=== PATIENT | male | born 1960 | race Caucasian/White ===

== ENCOUNTER 2024-07-21 09:14 | Outpatient (AMB) | payer MEDICAID, SELFPAY ==
--- NOTE | 2024-07-21 09:28 | HO.SPINEOV ---
Vital Signs 07/21/24 09:34 Height 5 ft 9 in Weight 215 lb BMI 31.7 Intake Visit Reasons: recurrent bilateral sacroiliac joint dysfunction Intake Note: Mr. Turner is here today c/o low back pain difficulty walking. Analytic Programmer Required: No Allergies doxycycline Allergy (Severe, Verified 07/21/24 09:36) Rash Sulfa (Sulfonamide Antibiotics) Allergy (Severe, Verified 07/21/24 09:36) Rash Physical Exam Vital Signs: BMI result Body Mass Index 31.7 Assessment & Plan Assessment & Plan (1) Chronic SI joint pain: Code(s): M53.3 - Sacrococcygeal disorders, not elsewhere classified; G89.29 - Other chronic pain Category: Medical Plan Dear Dr Cedillo, Thank you for referring Mr Turner to our office today. He is a very nice 64-year-old gentleman previous history of lumbar microdiskectomy surgery in the , who has had chronic issues with pain in his bilateral SI joints now for many years. He has a known history of degenerative disc disease as well. He has been treated through your pain Center with multiple rounds of injections in the SI joint and generally reports that he gets significant if not complete relief of the pain with the injections. The effect will last for few weeks and then it slowly starts to go away. As I understand it there was attempt to do a neurotomy or rhizotomy, but his insurance would not approve it so he was sent today for an evaluation a consideration of surgery SI joint fusion. The patient has the pain all across his SI joints in the lower beltline all throughout the day but it is aggravated with standing, bending, carrying things or sitting for any length of time. There is no radicular pain down the legs. He takes acetaminophen, methocarbamol to help with the discomfort. He can not take anti-inflammatories because of history of peptic ulcer disease. He has been through physical therapy, patient care provider as well as acupuncture forward with no significant relief PMH: Significant for coronary disease, he had a stent in his heart in September but from what he tells me it did not help the shortness of breath that he was having. He remains on aspirin and Plavix. He has a history of congestive heart failure., hypertension, high cholesterol, anxiety, previous alcohol abuse, bilateral knee replacements, bilateral shoulder repair, recently had a repair of an ankle injury from a fall just a few months back, back surgery 89, elbow surgery, bilateral hand surgery Social hx: He still smokes about 8 cigarettes a day, he has been sober for about 5 years no recreational drugs Medications: Jardiance, duloxetine, hydroxyzine, mirtazapine, Prilosec, alprazolam, Myrbetriq, methocarbamol, Klonopin, atorvastatin, Plavix, aspirin, BuSpar, gabapentin, metoprolol, Varian Cyclen Allergies: Sulfa and doxycycline Physical exam: Very slow to stand up, reports tremendous amount of pain with palpation over the SI joints, positive finger Denisse, positive bilateral COLIN testing and Gaenslen testing. Imaging review: There is a lumbar MRI at [facility] showing multilevel degenerative disc disease in lumbar spine which is severe and advanced. No significant central canal stenosis Impression: 64-year-old gentleman presents for evaluation of bilateral SI joint pain, has undergone numerous rounds of conservative treatment as outlined above with excellent response to repeated trials of SI joint injections. Unfortunately his insurance would not allow him to undergo rhizotomy so he is here today for surgical discussion of SI joint fusion. Dr. Kolb and I met with him, feel he is a good candidate for SI joint fusion. The patient prefers to start on the right side. We will book him for a right SI joint fusion in August. He understands he will need to be off his right leg nonweightbearing for 3 weeks. I gave him a prescription for a walker because he will very likely not be able to use crutches because of his shoulder problems. He does have a Rollator that he used when he had to be off his ankle. Although it has knee support to roll around, Dr. Kolb said this would be certainly reasonable to use as well. If he does well on the right side, we will do the left side. He will have to stop his aspirin and Plavix 10 days prior to surgery and will need a clearance note from his conduit worker at [facility]. He recently had an ankle surgery so he does not think it should be an issue. Pt was given risk and benefits of surgery including but not limited to infection, hematoma , nerve injury,durotomy, weakness,bowel/bladder injury, persistent pain, as well as the option to continue with conservative treatment and patient wishes to proceed with surgery. Pt is aware they should stop their motrin, aspirin 7 days prior to surgery. All questions were answered to the best of our ability. If there is anything about this patients medical history that we have overlooked or concerns you have about us proceeding with surgery we would appreciate any input you can offer. Thank you for allowing us to care for your patient. The total time spent with this visit with this patient was 45 minutes reviewing history, physical exam, lumbar imaging review, and implementation of treatment plan or further diagnostic testing Steve Kolb MD,PhD [facility] Medications: New [rolling walker] non weight bearing right leg after surgery 1 ea 0RF si joint surgery Coding Level of Care Code New Pt Level 4 (64110) Diagnoses Chronic SI joint pain M53.3; G89.29
[2024-07-21 09:34] VITALS: BMI 31.7
--- OUTSIDE RECORDS SUMMARY | 2024-07-21 09:44 | XMS_ITS | Clinical Summary ---
Author Organization [facility] Address [address] [place] [address] Phone Care Team Providers Care Chief Guard Name Role Phone Elmer Little DO Primary Care Provider [phone] Encounters Date Type Department Care Team Description 07/18/2024 Lab Requisition [facility] - Main Lab [address] [facility] [place] [phone] Radha Landeros Hematuria, unspecified; Urinary tract infection, site not specified 04/28/2024 7:59 AM EST - 04/28/2024 11:59 PM EST Hospital Encounter [facility] Ultrasound [address] [place] [phone] Pain in left ankle and joints of left foot; Claudication (CMS/HCC) Discharge Disposition: Home or Self Care 04/28/2024 7:59 AM EST - 04/28/2024 11:59 PM EST Hospital Encounter [facility] Ultrasound [address] [place] [phone] Claudication (CMS/HCC); Pain in left ankle and joints of left foot Discharge Disposition: Home or Self Care from Last 3 Months Social History Tobacco Use Types Packs/Day Years Used Date Smoking Tobacco: Never Assessed Sex and Gender Information Value Date Recorded Sex Assigned at Male 04/22/2024 11:54 AM EDT Gender Identity Male 04/22/2024 11:54 AM EDT Sexual Orientation Not on file Job Start Date Occupation Industry Not on file Not on file Not on file Obstetrics History Plan of Treatment Health Maintenance Due Date Last Done Comments Zoster Vaccines (1 of 2) 2011 Cholesterol Screening (Lipid Panel) 05/24/2022 Colorectal Cancer Screening: Colonoscopy 05/24/2022 Depression Screening 05/24/2022 HIV Screening 05/24/2022 Hepatitis C Screening 05/24/2022 Social Influencers of Health Screening 05/24/2022 COVID-19 Vaccine (3 - 2023-2 5 season) 2024 07/17/2020, 06/26/2020 Influenza Vaccine (#1) 2024 Hypertension/CHF/CAD Annual BMP Blood Test 04/28/2024 DTaP,Tdap,and Td Vaccines (2 - Td or Tdap) 07/11/2024 07/11/2014 RSV Immunization Patients 60 + Years Old (1 - 1-dose 75+ series) 2036 HIB Vaccines Aged Out No longer eligi ble based on patient's age to complete this topic HPV Vaccines Aged Out No longer eligi ble based on patient's age to complete this topic Hepatitis A Vaccines Aged Out No long er eligible based on patient's age to complete this topic Hepatitis B Vaccines Aged Out No long er eligible based on patient's age to complete this topic IPV Vaccines Aged Out No longer eligi ble based on patient's age to complete this topic MMR Vaccines Aged Out No longer eligi ble based on patient's age to complete this topic Meningococcal ACWY Vaccine Aged Out N o longer eligible based on patient's age to complete this topic Pneumococcal Vaccine: Pediatrics (0 to 5 Years) and At-Risk Patients (6 to 64 Years) Aged Out No longer eligible b ased on patient's age to complete this topic RSV Immunization Patients Under 20 months Aged Out No longer eligible b ased on patient's age to complete this topic Varicella Vaccines Aged Out No longer eligible based on patient's age to complete this topic Procedures Procedure Name Priority Date/Time Associated Diagnosis Comments URINALYSIS WITH REFLEX MICROSCOPIC Routine 07/18/2024 11:30 AM EST Hematuria, unspecified Urinary tract infection, site not specified URINALYSIS WITH REFLEX MICROSCOPIC Routine 07/18/2024 11:30 AM EST Hematuria, unspecified Urinary tract infection, site not specified CULTURE URINE Routine 07/18/2024 11:30 AM EST Hematuria, unspecified Urinary tract infection, site not specified VAS US ANKLE BRACHIAL INDEX Routine 04/28/2024 9:20 AM EST Claudication (CMS/HCC) Pain in left ankle and joints of left foot US EXTREMITY NONVASCULAR LIMITED LEFT Routine 04/28/2024 9:20 AM EST Pain in left ankle and joints of left foot Claudication (CMS/HCC) CT LOWER EXTREMITY WO CONTRAST LEFT Routine 04/20/2024 2:52 PM EDT from Last 3 Months Results * (ABNORMAL) Urinalysis with reflex microscopic (07/18/2024 11:30 AM EST) Specific [place] Urine 1.022 1.003 - 1.030 LAB URINALYSIS - AUTOMATED METHOD 07/18/2024 3:13 PM [facility] pH, Urine 6.0 5.0 - 8.0 pH LAB URINALYSIS - AUTOMATED METHOD 07/18/2024 3:13 PM [facility] Leukocytes, Urine Small(A) Negative LAB URINALYSIS - AUTOMATED METHOD 07/18/2024 3:13 PM [facility] Nitrite, Urine Negative Negative LAB URINALYSIS - AUTOMATED METHOD 07/18/2024 3:13 PM [facility] Protein, Urine Negative <=Trace mg/dL LAB URINALYSIS - AUTOMATED METHOD 07/18/2024 3:13 PM [facility] Glucose, Urine >=1000(A) Negative mg/dL LAB URINALYSIS - AUTOMATED METHOD 07/18/2024 3:13 PM [facility] Ketones, Urine Negative Negative mg/dL LAB URINALYSIS - AUTOMATED METHOD 07/18/2024 3:13 PM [facility] Urobilinogen , Urine 0.2 0.2 - 1.0 mg/dL LAB URINALYSIS - AUTOMATED METHOD 07/18/2024 3:13 PM [facility] Bilirubin, Urine Negative Negative LAB URINALYSIS - AUTOMATED METHOD 07/18/2024 3:13 PM [facility] Blood, Urine Negative Negative LAB URINALYSIS - AUTOMATED METHOD 07/18/2024 3:13 PM [facility] RBC, Urine 3.7 0 - 4 /HPF LAB URINALYSIS - AUTOMATED METHOD 07/18/2024 3:13 PM [facility] WBC, Urine 17.0(H) 0 - 4 /HPF LAB URINALYSIS - AUTOMATED METHOD 07/18/2024 3:13 PM [facility] Squamous Epithelial, Urine 44 0 - 60 /LPF LAB URINALYSIS - AUTOMATED METHOD 07/18/2024 3:13 PM [facility] Bacteria, Urine Negative Negative /HPF LAB URINALYSIS - AUTOMATED METHOD 07/18/2024 3:13 PM [facility] Hyaline Casts, Urine 0.4 0 - 3 /LPF LAB URINALYSIS - AUTOMATED METHOD 07/18/2024 3:13 PM [facility] Urine Urine specimen obtained by clean catch procedure / Unknown 07/18/2024 11:30 AM EST 07/18/2024 3:03 PM EST [facility] LAB URINE ORDERABLES Performing Organization Address City/[facility]/ZIP Co de Phone Number [facility] [address] [place] [address], * Culture urine (07/18/2024 11:30 AM EST) Culture, Urine <10,000 CFU/mL gram positive cocci, insignificant count, no further workup 07/19/2024 7:47 AM EST [facility] Urine Urine specimen obtained by clean catch procedure / Unknown 07/18/2024 11:30 AM EST 07/18/2024 3:03 PM EST [facility] LAB MICROBIOLOGY - G ENERAL ORDERABLES [facility] [address] [place] [address], * Vascular US ankle brachial index (MARY) (04/28/2024 9:20 AM EST) Anatomical Region Laterality Modality Vascular, Abdomen Ultrasound 04/28/2024 9:35 AM EST Impressions 04/28/2024 9:39 AM EST 1. In the right lower extremity, pressures in the posterior tibial artery, dorsalis pedis, and brachial artery are normal. 2. In the left lower extremity, pressures in the posterior tibial artery and dorsalis pedis are normal; pressure in the first digital artery is at the lower limits of normal. Code [address]40.52 CT Teleradiology -------- FINAL REPORT -------- Dictated By: Ramon Roland Dictated Date: 04/28/2024 09:35 ET Assigned Physician: Ramon Roland Reviewed and Electronically Signed By: Ramon Roland Signed Date: 04/28/2024 09:39 ET Workstation ID: [id number] Transcribed By: Self Edit Transcribed Date: 04/28/2024 09:35 ET Narrative 04/28/2024 9:39 AM EST HISTORY:The patient is a 63-year-old male with lower extremity claudication. FINDINGS: Bilateral ankle arterial pressure measurements are obtained. In the right lower extremity, the systolic pressure ratio between the posterior tibial artery and the brachial artery is 1.07, that between the dorsalis pedis and the brachial artery is 1.07, and that between the first digital artery and the brachial artery is 0.99. These ratios are all within normal limits. In the left lower extremity, the systolic pressure ratio between the posterior tibial artery and the brachial artery is 1.10, ??that between the dorsalis pedis and the brachial artery is 1.15, and that between the first digital artery and the brachial artery is 0.90. ??These ratios are normal in the posterior tibial artery and dorsalis pedis, and is at the lower limits of normal in the first digital artery. Procedure Note Ramon Roland MD - 04/28/2024 HISTORY:The patient is a 63-year-old male with lower extremityclaudication. FINDINGS: Bilateral ankle arterial pressure measurements are obtained. Inthe right lower extremity, the systolic pressure ratio between theposterior tibial artery and the brachial artery is 1.07, that between thedorsalis pedis and the brachial artery is 1.07, and that between the firstdigital artery and the brachial artery is 0.99. These ratios are allwithin normal limits. In the left lower extremity, the systolic pressure ratio between theposterior tibial artery and the brachial artery is 1.10, that between thedorsalis pedis and the brachial artery is 1.15, and that between the firstdigital artery and the brachial artery is 0.90. These ratios are normalin the posterior tibial artery and dorsalis pedis, and is at the lowerlimits of normal in the first digital artery. IMPRESSION: 1. In the right lower extremity, pressures in the posterior tibial artery,dorsalis pedis, and brachial artery are normal. 2. In the left lower extremity, pressures in the posterior tibial arteryand dorsalis pedis are normal; pressure in the first digital artery is atthe lower limits of normal. Code [address]321.52 CT Teleradiology -------- FINAL REPORT -------- Dictated By: Ramon Roland Dictated Date: 04/28/2024 09:35 ET Assigned Physician: Ramon Roland Reviewed and Electronically Signed By: Ramon Roland Signed Date: 04/28/2024 09:39 ET Workstation ID: [id number] Transcribed By: Self Edit Transcribed Date: 04/28/2024 09:35 ET Elmer Mercadante DO CV VASCULAR PROCEDUR ES * US Extremity Nonvascular Limited Left (04/28/2024 9:20 AM EST) Anatomical Region Laterality Modality Extremity Left Ultrasound 05/26/2024 11:1 8 AM EST Impressions 05/26/2024 11:22 AM EST Normal ultrasound of the Achilles tendon. No evidence of tear. -------- FINAL REPORT -------- Dictated By: Diallo Monte Dictated Date: 05/26/2024 11:18 ET Assigned Physician: Diallo Monte Reviewed and Electronically Signed By: Diallo Monte Signed Date: 05/26/2024 11:22 ET Workstation ID: [id number] Transcribed By: Self Edit Transcribed Date: 05/26/2024 11:18 ET Narrative 05/26/2024 11:22 AM EST EXAMINATION: Ultrasound extremity nonvascular. CLINICAL INDICATION: Evaluate for Achilles tendon. Previous history of lateral calcaneal ORIF area COMPARISON: None. TECHNIQUE: Limited ultrasound imaging of the Achilles tendon was performed. FINDINGS: There is normal echotexture, thickness seen throughout the entire musculotendinous junction and the Achilles tendon tube insertion with no evidence of tear or surrounding effusion/fluid collection. Procedure Note Diallo Monte MD - 05/26/2024 EXAMINATION: Ultrasound extremity nonvascular. CLINICAL INDICATION: Evaluate for Achilles tendon. Previous history oflateral calcaneal ORIF area COMPARISON: None. TECHNIQUE: Limited ultrasound imaging of the Achilles tendon wasperformed. FINDINGS: There is normal echotexture, thickness seen throughout theentire musculotendinous junction and the Achilles tendon tube insertionwith no evidence of tear or surrounding effusion/fluid collection. IMPRESSION: Normal ultrasound of the Achilles tendon. No evidence of tear. -------- FINAL REPORT -------- Dictated By: Diallo Monte Dictated Date: 05/26/2024 11:18 ET Assigned Physician: Diallo Monte Reviewed and Electronically Signed By: Diallo Monte Signed Date: 05/26/2024 11:22 ET Workstation ID: [id number] Transcribed By: Self Edit Transcribed Date: 05/26/2024 11:18 ET Elmer SOTO US PROCEDURES * CT Lower Extremity wo Contrast Left (04/20/2024 2:52 PM EDT) Anatomical Region Laterality Modality Lower Extremities Left Computed Tomog sofya Historical Provider MD TAYL[facility] CT PROCEDURES from Last 3 Months Advance Directives Documents on File Type Date Recorded Patient Brand [employer] Promotional Sales Expl anation Health Care Decision (hx) 05/28/2020 AD MIRZA DIRECTIVE Health Care Decision (hx) 05/28/2020 AD MIRZA DIRECTIVE Health Care Decision (hx) 05/28/2020 AD MIRZA DIRECTIVE Health Care Decision (hx) 05/28/2020 AD MIRZA DIRECTIVE Health Care Decision (hx) 05/11/2018 AD MIRZA DIRECTIVE Health Care Decision (hx) 05/11/2018 AD MIRZA DIRECTIVE Health Care Decision (hx) 05/11/2018 AD MIRZA DIRECTIVE Health Care Decision (hx) 05/11/2018 AD MIRZA DIRECTIVE Health Care Decision (hx) 05/11/2018 AD MIRZA DIRECTIVE Care Teams Chief Guard Relationship Specialty Start Date End Date Elmer Little DO [address] [place] [phone] PCP - General Internal Medicine 05/10/17
--- OUTSIDE RECORDS SUMMARY | 2024-07-21 09:44 | XMS_ITS | Encounter Summary ---
Author Organization [facility] Address [address] [place] [address] Care Team Providers Care Oxidation Engineer Name Role Phone Elmer Little DO Primary Care Provider [phone] Encounter Details Date Type Department Care Team (Late st Contact Info) Description 07/18/2024 Lab Requisition [facility] - Main Lab [address] [facility] [place] [address] [facility] Radha [address] [place] [address] Hematuria, unspecified; Urinary tract infection, site not specified Social History Tobacco Use Types Packs/Day Years Used Date Smoking Tobacco: Never Assessed Sex and Gender Information Value Date Recorded Sex Assigned at Male 04/22/2024 11:54 AM EDT Gender Identity Male 04/22/2024 11:54 AM EDT Sexual Orientation Not on file Job Start Date Occupation Industry Not on file Not on file Not on file documented as of this encounter Plan of Treatment Not on file documented as of this encounter Procedures Procedure Name Priority Date/Time Associated Diagnosis Comments URINALYSIS WITH REFLEX MICROSCOPIC Routine 07/18/2024 11:30 AM EST Hematuria, unspecified Urinary tract infection, site not specified URINALYSIS WITH REFLEX MICROSCOPIC Routine 07/18/2024 11:30 AM EST Hematuria, unspecified Urinary tract infection, site not specified CULTURE URINE Routine 07/18/2024 11:30 AM EST Hematuria, unspecified Urinary tract infection, site not specified documented in this encounter Results * (ABNORMAL) Urinalysis with reflex microscopic (07/18/2024 11:30 AM EST) Specific [place] Urine 1.022 1.003 - 1.030 LAB URINALYSIS - AUTOMATED METHOD 07/18/2024 3:[address] [facility] pH, Urine 6.0 5.0 - 8.0 pH LAB URINALYSIS - AUTOMATED METHOD 07/18/2024 3:[address] [facility] Leukocytes, Urine Small(A) Negative LAB URINALYSIS - AUTOMATED METHOD 07/18/2024 3:[address] [facility] Nitrite, Urine Negative Negative LAB URINALYSIS - AUTOMATED METHOD 07/18/2024 3:[address] [facility] Protein, Urine Negative <=Trace mg/dL LAB URINALYSIS - AUTOMATED METHOD 07/18/2024 3:[address] [facility] Glucose, Urine >=1000(A) Negative mg/dL LAB URINALYSIS - AUTOMATED METHOD 07/18/2024 3:[address] [facility] Ketones, Urine Negative Negative mg/dL LAB URINALYSIS - AUTOMATED METHOD 07/18/2024 3:[address] [facility] Urobilinogen , Urine 0.2 0.2 - 1.0 mg/dL LAB URINALYSIS - AUTOMATED METHOD 07/18/2024 3:[address] [facility] Bilirubin, Urine Negative Negative LAB URINALYSIS - AUTOMATED METHOD 07/18/2024 3:[address] [facility] Blood, Urine Negative Negative LAB URINALYSIS - AUTOMATED METHOD 07/18/2024 3:[address] [facility] RBC, Urine 3.7 0 - 4 /HPF LAB URINALYSIS - AUTOMATED METHOD 07/18/2024 3:[address] [facility] WBC, Urine 17.0(H) 0 - 4 /HPF LAB URINALYSIS - AUTOMATED METHOD 07/18/2024 3:[address] [facility] Squamous Epithelial, Urine 44 0 - 60 /LPF LAB URINALYSIS - AUTOMATED METHOD 07/18/2024 3:13 PM EST [facility] Bacteria, Urine Negative Negative /HPF LAB URINALYSIS - AUTOMATED METHOD 07/18/2024 3:[address] [facility] Hyaline Casts, Urine 0.4 0 - 3 /LPF LAB URINALYSIS - AUTOMATED METHOD 07/18/2024 3:[address] [facility] Urine Urine specimen obtained by clean catch procedure / Unknown 07/18/2024 11:30 AM EST 07/18/2024 3:03 PM EST [facility] LAB URINE ORDERABLES Performing Organization Address City/[facility]/ZIP Co de Phone Number [facility] [address] [place] [address], [place] [phone] * Culture urine (07/18/2024 11:30 AM EST) Culture, Urine <10,000 CFU/mL gram positive cocci, insignificant count, no further workup 07/19/2024 7:47 AM EST [facility] Urine Urine specimen obtained by clean catch procedure / Unknown 07/18/2024 11:30 AM EST 07/18/2024 3:03 PM EST [facility] LAB MICROBIOLOGY - G ENERAL ORDERABLES [facility] [address] [place] [address], [place] [phone] documented in this encounter Visit Diagnoses Diagnosis Hematuria, unspecified Urinary tract infection, site not specified documented in this encounter Care Teams Oxidation Engineer Relationship Specialty Start Date End Date Elmer Little DO [address] [place] [phone] PCP - General Internal Medicine 05/10/17 documented as of this encounter
--- OUTSIDE RECORDS SUMMARY | 2024-07-21 09:44 | XMS_ITS | Clinical Summary ---
Author Organization [facility] Address [address] [place] [address] Care Team Providers Care Heat Curer Name Role Phone Micaela Lagunas DMD Primary Care Provider [phone] Source Comments PLEASE NOTE, if this patient is a minor, it may be UNLAWFUL to discuss sensitive information that is contained in these records (such as FAMILY PLANNING, MENTAL HEALTH or SUBSTANCE ABUSE) with the minor patient's parent or other person without the patient's specific authorization.[facility] Social History Tobacco Use Types Packs/Day Years Used Date Smoking Tobacco: Never Assessed Social Connections Answer Date Recorded Social Connections and Isolation 0 08/01/2020 Financial Resource Strain Answer Date R ecorded Financial Resource Strain 0 2020 Stress Answer Date Recorded Stress 0 08/01/2020 Physical Activity Answer Date Recorded Physical Activity 0 08/01/2020 Food Insecurity Answer Date Recorded Food 0 08/01/2020 Transportation Needs Answer Date Record ed Transportation 0 08/01/2020 Housing Stability Answer Date Recorded Housing 0 08/01/2020 Safety and Environment Answer Date Alejandro rded Safety 0 08/01/2020 Utilities Answer Date Recorded Utilities 0 08/01/2020 Employment Answer Date Recorded Employment 0 08/01/2020 Sex and Gender Information Value Date Recorded Sex Assigned at Not on file Legal Sex Male 6:45 AM PDT Gender Identity Not on file Sexual Orientation Not on file Plan of Treatment Not on file Insurance HE[employer]AF[employer] [place] D[place] DENTAL Care Teams Heat Curer Relationship Specialty Start Date End Date Micaela Lagunas DMD [address] [place] [address] PCP - General 03/02/19
== END 2024-07-21 10:37 | disposition home or self-care (01) ==
PROVIDERS: PCP Internal Medicine; Referring Provider Physical Medicine & Rehabilitation; Visit Provider Physician Assistant
DX: M53.3 Sacrococcygeal disorders, not elsewhere classified (principal); G89.29 Other chronic pain
CPT/HCPCS: 99204

== ENCOUNTER → 2024-07-21 09:14 | Outpatient (BNVA) | payer MEDICAID, SELFPAY | PROVIDERS: PCP Internal Medicine; Referring Provider Physical Medicine & Rehabilitation; Visit Provider Physician Assistant | DX: M53.3 Sacrococcygeal disorders, not elsewhere classified (principal); G89.29 Other chronic pain | CPT/HCPCS: 99212 ==